=== PATIENT | female | born 1965 | race Caucasian/White ===

== ENCOUNTER 2018-05-04 12:37 | Emergency (ER) | payer OTHER ==
[~2018-05-04] VITALS: Ht 162.6 cm; Wt 61.2 kg
[~2018-05-04 12:37] MED LIST: TRAZ300T2 PO
[2018-05-04 13:21] LABS: BASO % 1 % (0-3); EOS % 0 % (0-3); HEMATOCRIT 43.8 % (36.0-47.0); HEMOGLOBIN 14.7 g/dL (12.0-15.5); LYMPH # 3.1 x10^3/uL (1.0-4.8); LYMPH % 49 % (24-48); MEAN CORPUSCULAR HEMOGLOBIN 30 pg (25-35); MEAN CORPUSCULAR HGB CONC 34 g/dL (31-37); MEAN CORPUSCULAR VOLUME 90 fL (79-100); MONO # 0.3 x10^3/uL (0.0-1.1); MONO % 4 % (0-9); NEUT # 2.9 x10^3uL (1.8-7.7); NEUT % 46 % (31-73); PLATELET COUNT 244 x10^3/uL (140-400); RED BLOOD COUNT 4.88 x10^6/uL (3.50-5.40); RED CELL DISTRIBUTION WIDTH 13.5 % (11.5-14.5); WHITE BLOOD COUNT 6.3 x10^3/uL (4.0-11.0)
[2018-05-04 13:29] LABS: PROTHROMBIN TIME PATIENT 12.7 SEC (11.7-14.0)
[2018-05-04 13:32] LABS: D-DIMER 0.53 ug/mlFEU (0.00-0.50)
[2018-05-04 13:41] LABS: CREATININE 0.9 mg/dL (0.6-1.0); POTASSIUM 4.3 mmol/L (3.5-5.1)
[2018-05-04 13:49] LABS: ALBUMIN 3.5 g/dL (3.4-5.0); TOTAL BILIRUBIN 0.2 mg/dL (0.2-1.0); TOTAL PROTEIN 7.1 g/dL (6.4-8.2)
[2018-05-04 14:09] LABS: BILIRUBIN,URINE NEGATIVE (NEG); CLARITY,URINE CLEAR; COLOR,URINE YELLOW; NITRITE,URINE NEGATIVE (NEG); PH,URINE 6.5; PROTEIN,URINE NEGATIVE (NEG-TRACE); UROBILINOGEN,URINE 0.2 mg/dL (0.2 mg/dL)
--- NOTE | 2018-05-04 14:24 | RAD ---
EXAM: CT Head without IV contrast CLINICAL HISTORY: DIZZINESS, NEAR SYNCOPE, NO PRIORS COMPARISON: None. TECHNIQUE: Routine CT of the head without contrast. Soft tissues and bone windows were reviewed. PQRS compliance statement - One or more of the following individualized dose reduction techniques were utilized for this study: 1. Automated exposure control 2. Adjustment of the mA and/or kV according to patient size 3. Use of iterative reconstruction technique FINDINGS: There is no evidence of hemorrhage, mass or extra-axial fluid collection. Bergeron-white differentiation is maintained with no evidence of edema. There is no mass effect or shift of the intracranial structures. The ventricles, basilar cisterns and cortical sulci are normal in size and configuration for the patients stated age. The cerebellum and brainstem are unremarkable. The calvarium demonstrates no evidence of fracture or focal lesion. There is normal aeration of the visualized paranasal sinuses and mastoid air cells. The visualized portions of the orbits are normal. IMPRESSION: 1. No evidence for acute intracranial process. Electronically signed by: Gino Russell MD (05/04/2018 2:21 PM) [id number]
[2018-05-04 14:26] LABS: BARBITURATES NEG (NEG); BENZODIAZEPINES NEG (NEG); CANNABINOIDS POS (NEG); COCAINE POS (NEG); METHADONE NEG (NEG); OPIATES NEG (NEG); PHENCYCLIDINE NEG (NEG)
[2018-05-04 14:27] LABS: AMPHETAMINE/METHAMPHETAMINE NEG (NEG)
[2018-05-04 14:30] LABS: BACTERIA,URINE 0 /HPF (0-FEW); RBC,URINE 0 /HPF (0-2); SQUAMOUS EPITHELIAL CELL,UR FEW /LPF; WBC,URINE 0 /HPF (0-4)
[2018-05-04] MEDS ORDERED: IOHEXOL 350 MG/ML 100 ML VIAL. IV ONE (14:30)
[2018-05-04] MEDS ORDERED: CONTRAST GIVEN. MC PRN (14:30)
--- NOTE | 2018-05-04 14:46 | EKG ---
[facility] [address] [place] [address] Test Date: 2018-05-04 Test Time: 12:58:01 Pat Name: HARRIS LAUGHLIN Department: Room: Gender: F Communications Manager: : 1965 Requested By: NORMA ADAME Order Number: [id number] Reading MD: Mik Lau MD Measurements Intervals [place] Rate: 76 P: 0 AK: 152 QRS: 33 QRSD: 84 T: 8 QT: 358 QTc: 407 Interpretive Statements SINUS RHYTHM Electronically Signed On 05-07-2018 16:10:20 CDT by Mik Lau MD
--- NOTE | 2018-05-04 14:53 | RAD ---
PQRS Compliance Statement: One or more of the following individualized dose reduction techniques were utilized for this examination: 1. Automated exposure control 2. Adjustment of the mA and/or kV according to patient size 3. Use of iterative reconstruction technique CT CHEST WITH CONTRAST, PULMONARY ANGIOGRAM History: SOA, DIZZY, NEAR SYNCOPE, Comparison: None. Technique: Helical CT of the chest was performed after the administration of 90 cc of Omnipaque 350 intravenous contrast according to PE protocol. Axial and coronal reconstructions were obtained. 3-D MIP images were constructed to better evaluate the pulmonary arteries. Findings: Pulmonary arteries are adequately opacified. There is no evidence of pulmonary embolism. A thin linear filling defect is seen in right lower lobe segmental pulmonary artery suggestive of a web which may be due to chronic pulmonary embolus, coronal image 33 of series 5. There is no thoracic aortic dissection. The great vessels are normal caliber. There is no adenopathy in the chest. There is coronary artery disease. Cardiac size normal, no pericardial effusion. There is no pleural effusion. The central airways are patent. There is moderate paraseptal emphysema. There is bilateral lower lobe dependent atelectasis. Lungs are otherwise clear. 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 No loss of vertebral body height in the thoracic spine. There is chronic appearing deformity of the left scapula. IMPRESSION: 1. There is no CT evidence of pulmonary embolus. Please see above discussion. 2. Moderate paraseptal emphysema. Electronically signed by: Wood Bolanos MD (05/04/2018 2:50 PM) [id number]
[2018-05-04 15:17] VITALS: BP 113/69
--- NOTE | 2018-05-04 15:38 | PHYS DOC ---
Past Medical History Past Medical History: Other Additional Past Medical Histor: pneumothorax, INSOMNIA Past Surgical History: Other Additional Past Surgical Histo: chest tube placement Alcohol Use: Occasionally Drug Use: Marijuana Adult General Chief Complaint Chief Complaint: SHORTNESS OF BREATH HPI HPI Patient is a 52 year old female presented ER today for evaluation of dizziness while she was in the shower this morning. Patient woke up this morning, fell fine. While she was in the shower, she felt hot flush and dizzy, felt like she was going to pass out so she got out and came here for evaluation,... Patient actually has history of dizziness and shortness of air off and on for two months. Patient denied any headache, no chest pain, no cough, no fever. Review of Systems Review of Systems Constitutional: Denies fever or chills [] Eyes: Denies change in visual acuity, redness, or eye pain [] HENT: Denies nasal congestion or sore throat [] Respiratory: Denies cough, positive for shortness of breath [] Cardiovascular: No additional information not addressed in HPI [] GI: Denies abdominal pain, nausea, vomiting, bloody stools or diarrhea [] : Denies dysuria or hematuria [] Musculoskeletal: Denies back pain or joint pain [] Integument: Denies rash or skin lesions [] Neurologic: Denies headache, focal weakness or sensory changes. Positive for dizziness. Endocrine: Denies polyuria or polydipsia [] All other systems were reviewed and found to be within normal limits, except as documented in this note. Current Medications Current Medications Current Medications Medications (Trade) Dose Ordered Sig/Tammy Start Time Stop Time Status Last Admin Dose Admin Info (CONTRAST GIVEN -- Rx MONITORING) 1 each PRN DAILY PRN 05/04/18 14:30 05/04/18 16:07 DC Iohexol (Omnipaque 350 Mg/ml) 100 ml 1X ONCE 05/04/18 14:30 05/04/18 14:31 DC 05/04/18 14:33 100 ML Allergies Allergies Allergies Coded Allergies Type Severity Reaction Last Updated Verified No Known Drug Allergies 12/24/13 No Physical Exam Physical Exam Constitutional: Well developed, well nourished, no acute distress, non-toxic appearance. [] HENT: Normocephalic, atraumatic, bilateral external ears normal, oropharynx moist, no oral exudates, nose normal. [] Eyes: PERRLA, EOMI, conjunctiva normal, no discharge. [] Neck: Normal range of motion, no tenderness, supple, no stridor. [] Cardiovascular:Heart rate regular rhythm, no murmur [] Lungs & Thorax: Bilateral breath sounds clear to auscultation [] Abdomen: Bowel sounds normal, soft, no tenderness, no masses, no pulsatile masses. [] Skin: Warm, dry, no erythema, no rash. [] Back: No tenderness, no CVA tenderness. [] Extremities: No tenderness, no cyanosis, no clubbing, ROM intact, no edema. [] Neurologic: Alert and oriented X 3, normal motor function, normal sensory function, no focal deficits noted. [] Psychologic: Affect normal, judgement normal, mood normal. [] Current Patient Data Vital Signs Vital Signs Date Time Temp Pulse Resp B/P (MAP) Pulse Ox O2 Delivery O2 Flow Rate FiO2 05/04/18 15:17 73 20 113/69 (84) 100 Room Air 05/04/18 12:49 97.6 97.6 Lab Values Laboratory Tests Test 05/04/18 12:58 05/04/18 13:55 White Blood Count 6.3 x10^3/uL (4.0-11.0) Red Blood Count 4.88 x10^6/uL (3.50-5.40) Hemoglobin 14.7 g/dL (12.0-15.5) Hematocrit 43.8 % (36.0-47.0) Mean Corpuscular Volume 90 fL (79-100) Mean Corpuscular Hemoglobin 30 pg (25-35) Mean Corpuscular Hemoglobin Concent 34 g/dL (31-37) Red Cell Distribution Width 13.5 % (11.5-14.5) Platelet Count 244 x10^3/uL (140-400) Neutrophils (%) (Auto) 46 % (31-73) Lymphocytes (%) (Auto) 49 % (24-48) H Monocytes (%) (Auto) 4 % (0-9) Eosinophils (%) (Auto) 0 % (0-3) Basophils (%) (Auto) 1 % (0-3) Neutrophils # (Auto) 2.9 x10^3uL (1.8-7.7) Lymphocytes # (Auto) 3.1 x10^3/uL (1.0-4.8) Monocytes # (Auto) 0.3 x10^3/uL (0.0-1.1) Eosinophils # (Auto) 0.0 x10^3/uL (0.0-0.7) Basophils # (Auto) 0.0 x10^3/uL (0.0-0.2) Prothrombin Time 12.7 SEC (11.7-14.0) Prothrombin Time INR 1.0 (0.8-1.1) PTT 26 SEC (24-38) D-Dimer (Viry) 0.53 ug/mlFEU (0.00-0.50) H Sodium Level 142 mmol/L (136-145) Potassium Level 4.3 mmol/L (3.5-5.1) Chloride Level 105 mmol/L (98-107) Carbon Dioxide Level 25 mmol/L (21-32) Anion Gap 12 (6-14) Blood Urea Nitrogen 11 mg/dL (7-20) Creatinine 0.9 mg/dL (0.6-1.0) Estimated GFR (Cockcroft-Gault) 66.0 BUN/Creatinine Ratio 12 (6-20) Glucose Level 85 mg/dL (70-99) Calcium Level 9.0 mg/dL (8.5-10.1) Magnesium Level 2.0 mg/dL (1.8-2.4) Total Bilirubin 0.2 mg/dL (0.2-1.0) Aspartate Amino Transferase (AST) 14 U/L (15-37) L Alanine Aminotransferase (ALT) 16 U/L (14-59) Alkaline Phosphatase 69 U/L (46-116) Troponin I Quantitative < 0.017 ng/mL (0.000-0.055) Total Protein 7.1 g/dL (6.4-8.2) Albumin 3.5 g/dL (3.4-5.0) Albumin/Globulin Ratio 1.0 (1.0-1.7) Urine Collection Type Unknown Urine Color Yellow Urine Clarity Clear Urine pH 6.5 Urine Specific [place] <=1.005 Urine Protein Negative mg/dL (NEG-TRACE) Urine Glucose (UA) Negative mg/dL (NEG) Urine Ketones (Stick) Negative mg/dL (NEG) Urine Blood Negative (NEG) Urine Nitrite Negative (NEG) Urine Bilirubin Negative (NEG) Urine Urobilinogen Dipstick 0.2 mg/dL (0.2 mg/dL) Urine Leukocyte Esterase Negative (NEG) Urine RBC 0 /HPF (0-2) Urine WBC 0 /HPF (0-4) Urine Squamous Epithelial Cells Few /LPF Urine Bacteria 0 /HPF (0-FEW) Urine Opiates Screen Neg (NEG) Urine Methadone Screen Neg (NEG) Urine Barbiturates Neg (NEG) Urine Phencyclidine Screen Neg (NEG) Urine Amphetamine/Methamphetamine Neg (NEG) Urine Benzodiazepines Screen Neg (NEG) Urine Cocaine Screen Pos (NEG) Urine Cannabinoids Screen Pos (NEG) Urine Ethyl Alcohol Neg (NEG) Laboratory Tests 05/04/18 12:58 Laboratory Tests 05/04/18 12:58 EKG EKG ekg was read by this physician at 1300, rate of 76 bpm, sinus rhythm, no STEMI. [] Radiology/Procedures Radiology/Procedures [][facility] [address] [place] [address] IMAGING REPORT Signed PATIENT: HARRIS LAUGHLIN ACCOUNT: [id number] : 1965 LOCATION: ER AGE: 52 SEX: F EXAM STATUS: REG ER ORD. PHYSICIAN: NORMA ADAME DO REASON: dizziness, almost passed out this morning PROCEDURE: CT HEAD WO CONTRAST EXAM: CT Head without IV contrast CLINICAL HISTORY: DIZZINESS, NEAR SYNCOPE, NO PRIORS COMPARISON: None. TECHNIQUE: Routine CT of the head without contrast. Soft tissues and bone windows were reviewed. PQRS compliance statement - One or more of the following individualized dose reduction techniques were utilized for this study: 1. Automated exposure control 2. Adjustment of the mA and/or kV according to patient size 3. Use of iterative reconstruction technique FINDINGS: There is no evidence of hemorrhage, mass or extra-axial fluid collection. Bergeron-white differentiation is maintained with no evidence of edema. There is no mass effect or shift of the intracranial structures. The ventricles, basilar cisterns and cortical sulci are normal in size and configuration for the patients stated age. The cerebellum and brainstem are unremarkable. The calvarium demonstrates no evidence of fracture or focal lesion. There is normal aeration of the visualized paranasal sinuses and mastoid air cells. The visualized portions of the orbits are normal. IMPRESSION: 1. No evidence for acute intracranial process. Electronically signed by: Gino Gonzalez MD (05/04/2018 2:21 PM) [id number] DICTATED and SIGNED BY: GINO GONZALEZ MD DATE: 05/04/18 1421 [facility] [address] [place] [address] IMAGING REPORT Signed PATIENT: HARRIS LAUGHLIN ACCOUNT: [id number] : 1965 LOCATION: ER AGE: 52 SEX: F EXAM STATUS: REG ER ORD. PHYSICIAN: NORMA ADAME DO REASON: SHORTNESS OF AIR, DIZZINESS, NEAR SYNCOPE PROCEDURE: CT ANGIOGRAPHY CHEST PQRS Compliance Statement: One or more of the following individualized dose reduction techniques were utilized for this examination: 1. Automated exposure control 2. Adjustment of the mA and/or kV according to patient size 3. Use of iterative reconstruction technique CT CHEST WITH CONTRAST, PULMONARY ANGIOGRAM History: SOA, DIZZY, NEAR SYNCOPE, Comparison: None. Technique: Helical CT of the chest was performed after the administration of 90 cc of Omnipaque 350 intravenous contrast according to PE protocol. Axial and coronal reconstructions were obtained. 3-D MIP images were constructed to better evaluate the pulmonary arteries. Findings: Pulmonary arteries are adequately opacified. There is no evidence of pulmonary embolism. A thin linear filling defect is seen in right lower lobe segmental pulmonary artery suggestive of a web which may be due to chronic pulmonary embolus, coronal image 33 of series 5. There is no thoracic aortic dissection. The great vessels are normal caliber. There is no adenopathy in the chest. There is coronary artery disease. Cardiac size normal, no pericardial effusion. There is no pleural effusion. The central airways are patent. There is moderate paraseptal emphysema. There is bilateral lower lobe dependent atelectasis. Lungs are otherwise clear. 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 No loss of vertebral body height in the thoracic spine. There is chronic appearing deformity of the left scapula. IMPRESSION: 1. There is no CT evidence of pulmonary embolus. Please see above discussion. 2. Moderate paraseptal emphysema. Electronically signed by: Rick Bolanos MD (05/04/2018 2:50 PM) [id number] DICTATED and SIGNED BY: RICK BOLANOS MD DATE: 05/04/18 2990 Course & Med Decision Making Course & Med Decision Making Pertinent Labs and Imaging studies reviewed. (See chart for details) [] Dragon Disclaimer Dragon Disclaimer This electronic medical record was generated, in whole or in part, using a voice recognition dictation system. Departure Departure Impression: Primary Impression: Dizziness Additional Impressions: Dizziness, nonspecific Dyspnea Disposition: 01 HOME, SELF-CARE Condition: STABLE Referrals: UNKNOWN PCP NAME (PCP) follow up with your doctor next week for further evaluation. Patient Instructions: Dizziness, Shortness of Breath Problem Qualifiers NORMA ADAME DO May 04, 2018 15:38
== END 2018-05-04 15:56 | disposition home or self-care (01) ==
LOC: ER 12:37
DX: R42 Dizziness and giddiness (principal); R06.00 Dyspnea, unspecified; R06.02 Shortness of breath
CPT/HCPCS: 36415; 70450; 71275; 80053; 80307; 81001; 83735; 84484; 85025; 85379; 85610; 85730; 93005; 99284; Q9967

== ENCOUNTER 2020-10-31 16:29 | Emergency (ER) | payer BC, OTHER ==
[~2020-10-31] VITALS: Ht 162.6 cm; Wt 58.0 kg
[2020-10-31 17:33] VITALS: BP 135/87
[2020-10-31] MEDS ORDERED: DIPH,PERTUSS(ACELL),TET VAC/PF 0.5 ML SYRINGE. VAX IM ONE (17:45)
[2020-10-31] MEDS ORDERED: LIDOCAINE 1% Multi-Dose 20 ML VIAL. INJ ONE (17:45)
--- NOTE | 2020-10-31 19:51 | PHYS DOC ---
Past Medical History Past Medical History: Other Additional Past Medical Histor: pneumothorax, INSOMNIA Past Surgical History: No Surgical History, Other Additional Past Surgical Histo: chest tube placement Smoking Status: Current Every Day Smoker Alcohol Use: Occasionally Drug Use: Marijuana General Adult EDM: Chief Complaint: LACERATION/AVULSION HPI: HPI: Patient is a 55 year old female who presents to the ED today with right hand/fingers laceration. Patient got cut by a broken glass she was washing. Review of Systems: Review of Systems: Constitutional: Denies fever or chills. [] Musculoskeletal: Denies back pain or joint pain. [] Integument: Reports right fingers laceration Neurologic: Denies headache, focal weakness or sensory changes. [] ] Psychiatric: Denies depression or anxiety. [] Heart Score: C/O Chest Pain: N/A Risk Factors: Risk Factors: DM, Current or recent (<one month) smoker, HTN, HLP, family history of CAD, obesity. Risk Scores: Score 0 - 3: 2.5% MACE over next 6 weeks - Discharge Home Score 4 - 6: 20.3% MACE over next 6 weeks - Admit for Clinical Observation Score 7 - 10: 72.7% MACE over next 6 weeks - Early Invasive Strategies Current Medications: Current Medications Medications (Trade) Dose Ordered Sig/Tammy Start Time Stop Time Status Last Admin Dose Admin Diphtheria/ Tetanus/Acell Pertussis (ADACEL TDap SYRINGE) 0.5 ml ONCE ONCE 10/31/20 17:45 10/31/20 17:46 DC 10/31/20 17:55 0.5 ML Lidocaine HCl (Lidocaine 1% 20ml Vial) 20 ml 1X ONCE 10/31/20 17:45 10/31/20 17:46 DC Allergies: Allergies: Allergies Coded Allergies Type Severity Reaction Last Updated Verified No Known Drug Allergies 12/24/13 No Physical Exam: PE: Constitutional: Well developed, well nourished, no acute distress, non-toxic appearance. [] Skin: Right index finger mid phalanx dorsal aspect with a V-shaped laceration approximately 2 cm long. Right ring finger distal phalanx with a skin avulsion laceration approximately 1 cm long. There is no obvious tendon involvement in both lacerations. Full range of motion to all the fingers on the right hand. Adequate radial, medial, ulnar sensation to the right hand. +2 right radial pulse. Cap refill less than 2 seconds to right fingers. Back: No tenderness, no CVA tenderness. [] Extremities: No tenderness, no cyanosis, no clubbing, ROM intact, no edema. [] Neurologic: Alert and oriented X 3, normal motor function, normal sensory function, no focal deficits noted. [] Psychologic: Affect normal, judgement normal, mood normal. [] Current Patient Data: Vital Signs: Vital Signs Date Time Temp Pulse Resp B/P (MAP) Pulse Ox O2 Delivery O2 Flow Rate FiO2 10/31/20 17:33 97.7 77 16 135/87 (103) 97 Room Air 97.7 EKG: EKG: [] Radiology/Procedures: Radiology/Procedures: Laceration/Wound Repair Wound Location: Right index finger and right ring finger Wound Length (cm): See assessment Wound Explored: clean Irrigated w/ Saline (ccs): 200 Betadine Prep?: Yes Anesthesia: 1% of lidocaine Volume Anesthetic (ccs): 6 cc total Wound Repaired With: Right index finger was repaired with 5 interrupted sutures using four-point 0 Ethilon, right ring finger was repaired with 4 interrupted sutures using 4.0 Ethilon. The lacerations were covered with nonstick dressings Course & Med Decision Making: Course & Med Decision Making Pertinent Labs and Imaging studies reviewed. (See chart for details) This a 55-year-old female patient presenting to the ED today with laceration to the right hand that were closed by me as noted in procedures. Wound care instructions and return precautions provided to patient. Tetanus updated. Patient was yelling and screaming using F word. I had to instruct patient to consider watching her mind when considering this is the ED and we have children and other patients that may not be pleased with the language she is using. She eventually kept quiet Dragon Disclaimer: Landry Disclaimer: This electronic medical record was generated, in whole or in part, using a voice recognition dictation system. Departure Departure Impression: Primary Impression: Laceration of index finger Qualified Codes: S61.210A - Laceration without foreign body of right index finger without damage to nail, initial encounter Additional Impression: Laceration of ring finger Qualified Codes: S61.214A - Laceration without foreign body of right ring finger without damage to nail, initial encounter Disposition: HOME / SELF CARE / HOMELESS Condition: STABLE Referrals: NO PCP (PCP) Follow-up with the ED or your doctor in 7 days for stitches to be removed Patient Instructions: Fingertip Laceration Additional Instructions: You have a laceration to your right fingers that was closed with stitches. You can shower and wash the area starting tomorrow. Apply Neosporin to the areas twice a day. Monitor the area for any signs of infection including but not limited to increased redness, warmth, yellow drainage from the area and return to the ED if they occur. Follow-up with the emergency room or your own doctor in 7 days for stitches to be removed ESSIE IRVING APRN Oct 31, 2020 19:51
== END 2020-10-31 19:30 | disposition home or self-care (01) ==
LOC: ER 16:29
DX: S61.210A Laceration without foreign body of right index finger without damage to nail, initial encounter (principal); S61.214A Laceration without foreign body of right ring finger without damage to nail, initial encounter; F17.200 Nicotine dependence, unspecified, uncomplicated; W25.XXXA Contact with sharp glass, initial encounter; Y93.89 Activity, other specified; Y92.89 Other specified places as the place of occurrence of the external cause; Y99.8 Other external cause status
CPT/HCPCS: 12002; 90471; 90715; 99283